=== PATIENT | female | born 1970 | race Caucasian/White ===

== ENCOUNTER 2020-02-27 07:47 | Emergency (ER) | payer OTHER ==
[~2020-02-27] VITALS: Ht 152.4 cm; Wt 51.0 kg
[~2020-02-27 07:47] MED LIST: BUPR300T49 PO
--- NOTE | 2020-02-27 08:03 | NUR ---
DIRECTOR QUALITY ASSURANCE: GEN SURG/WESTERN SURGICAL PAGED PER DR GOINS REQUEST AT THIS TIME.
[2020-02-27] MEDS ORDERED: MORPHINE SULFATE 4 MG/ML, 1ML ONE ×2 (08:11→09:13)
[2020-02-27] MEDS ORDERED: ONDANSETRON 2MG/ML, 2ML ONE (08:11)
[2020-02-27] MEDS ORDERED: ALPR0.5T PO (08:26)
[2020-02-27] MEDS ORDERED: ONDANSETRON 2MG/ML, 2ML IVPush ONE (08:30)
[2020-02-27] MEDS ORDERED: SODIUM CHLORIDE FLUSH 10ML SYR IVF ONE (08:30)
[2020-02-27 08:31] LABS: BASOPHILS # (AUTO) 0.04 x10^3/uL (0-0.1); BASOPHILS % (AUTO) 0 % (0-1); EOSINOPHILS # (AUTO) 0.02 x10^3/uL (0-0.4); EOSINOPHILS % (AUTO) 0 % (1-7); LYMPHOCYTES # (AUTO) 1.64 x10^3/uL (1-3.4); LYMPHOCYTES % (AUTO) 15 % (22-44); MD NO; MEAN CORPUSCULAR HEMOGLOBIN 31.8 pg (27.0-34.8); MEAN CORPUSCULAR HGB CONC 33.1 g/dL (32.4-35.8); MEAN CORPUSCULAR VOLUME 96.2 fL (80-100); MEAN PLATELET VOLUME 6.7 fL (7.4-10.4); MONOCYTES # (AUTO) 0.38 x10^3/uL (0.2-0.8); MONOCYTES % (AUTO) 3 % (2-9); NEUTROPHILS % (AUTO) 82 % (42-75); PLATELET COUNT 337 x10^3/uL (130-400); RED BLOOD COUNT 4.36 x10^6/uL (3.82-5.3)
[2020-02-27] MEDS: MORPHINE SULFATE 4 MG/ML, 1ML IVPush PRN ×2 (08:33→09:17)
--- NOTE | 2020-02-27 08:38 | NUR ---
Patient medicated for pain per mar with some relief. Labs sent. Awaiting ct. call light with in reach.
[2020-02-27 08:43] LABS: ALANINE AMINOTRANSFERASE 43 U/L (12-78); ANION GAP 3 mmol/L (5-15); CALCIUM 9.1 mg/dL (8.5-10.1); CHLORIDE 109 mmol/L (98-107); CREATININE 1.04 mg/dL (0.55-1.02)
[2020-02-27 08:45] LABS: ALKALINE PHOSPHATASE 51 U/L (45-117); BILIRUBIN,TOTAL 0.3 mg/dL (0.2-1.0); TOTAL PROTEIN 7.6 g/dL (6.4-8.2)
[2020-02-27] MEDS ORDERED: OMNIPAQUE 350 MG/ML, 100ML BOTTLE ONE (09:08)
--- NOTE | 2020-02-27 09:33 | NUR ---
pt re-medicated per mar for pain. iphone plugged in at front dest for pt. awaiting imaging results. call light with in reach.
--- NOTE | 2020-02-27 10:19 | NUR ---
THROUGHPUT RN: PHONE GIVEN BACK TO PT.
[2020-02-27 10:50] VITALS: BP 131/70
== END 2020-02-27 10:53 | disposition home or self-care (01) ==
LOC: ED 10:35
DX: K62.3 Rectal prolapse (principal); R19.7 Diarrhea, unspecified; R10.9 Unspecified abdominal pain
CPT/HCPCS: 36415; 74177; 80053; 83605; 85025; 96374; 96375; 96376; 99285; J2270; J2405; Q9967

== ENCOUNTER 2020-03-26 17:44 | Emergency (ER) | payer OTHER ==
[~2020-03-26] VITALS: Ht 152.4 cm; Wt 50.0 kg
[~2020-03-26 17:44] MED LIST changes: +ALPR0.5T PO
--- NOTE | 2020-03-26 18:44 | NUR ---
TO ROBERT FROM LOBBY
[2020-03-26] MEDS ORDERED: ONDANSETRON 2MG/ML, 2ML ONE (19:09)
[2020-03-26] MEDS ORDERED: MORPHINE SULFATE 4 MG/ML, 1ML ONE ×2 (19:10→21:05)
[2020-03-26] MEDS ORDERED: SODIUM CHLORIDE 0.9% 1,000 ML IV ONE (19:22)
[2020-03-26] MEDS: MORPHINE SULFATE 4 MG/ML, 1ML IVPush PRN ×2 (19:26→21:10)
[2020-03-26] MEDS ORDERED: DIAZEPAM 5 MG/ML, 2ML ONE (19:28)
[2020-03-26] MEDS ORDERED: FENTANYL PF 100 MCG/2ML IVPush ONE (19:30)
[2020-03-26] MEDS ORDERED: DIAZEPAM 5 MG/ML, 2ML IV ONE (19:30)
[2020-03-26] MEDS ORDERED: SODIUM CHLORIDE FLUSH 10ML SYR IVF ONE (19:30)
[2020-03-26] MEDS ORDERED: ONDANSETRON 2MG/ML, 2ML IVPush ONE (19:30)
[2020-03-26] MEDS ORDERED: SODIUM CHLORIDE 0.9% 1,000ML IVBOLUS ONE (19:30)
[2020-03-26 19:45] LABS: BASOPHILS # (AUTO) 0.02 x10^3/uL (0-0.1); BASOPHILS % (AUTO) 0 % (0-1); EOSINOPHILS # (AUTO) 0.06 x10^3/uL (0-0.4); EOSINOPHILS % (AUTO) 1 % (1-7); LYMPHOCYTES # (AUTO) 2.16 x10^3/uL (1-3.4); LYMPHOCYTES % (AUTO) 23 % (22-44); MD NO; MEAN CORPUSCULAR HEMOGLOBIN 31.5 pg (27.0-34.8); MEAN CORPUSCULAR HGB CONC 33.6 g/dL (32.4-35.8); MEAN PLATELET VOLUME 6.6 fL (7.4-10.4); MONOCYTES # (AUTO) 0.68 x10^3/uL (0.2-0.8); MONOCYTES % (AUTO) 7 % (2-9); NEUTROPHILS # (AUTO) 6.35 x10^3/uL (1.8-6.8); NEUTROPHILS % (AUTO) 69 % (42-75); PLATELET COUNT 345 x10^3/uL (130-400); RED BLOOD COUNT 3.83 x10^6/uL (3.82-5.3); RED CELL DISTRIBUTION WIDTH 12.9 % (9.6-15.2)
[2020-03-26 19:56] LABS: ALANINE AMINOTRANSFERASE 17 U/L (12-78); ALBUMIN 3.6 g/dL (3.4-5.0); ANION GAP 5 mmol/L (5-15); CALCIUM 8.8 mg/dL (8.5-10.1); CHLORIDE 107 mmol/L (98-107); CREATININE 1.08 mg/dL (0.55-1.02)
[2020-03-26 19:58] LABS: ALKALINE PHOSPHATASE 72 U/L (45-117); BILIRUBIN,TOTAL 0.2 mg/dL (0.2-1.0); TOTAL PROTEIN 7.6 g/dL (6.4-8.2)
[2020-03-26 20:10] VITALS: BP 98/58
[2020-03-26] MEDS ORDERED: FENTANYL PF 100 MCG/2ML ONE (21:01)
== END 2020-03-26 21:29 | disposition home or self-care (01) ==
LOC: ED 20:41
DX: K62.89 Other specified diseases of anus and rectum (principal); G89.18 Other acute postprocedural pain; K62.5 Hemorrhage of anus and rectum; R11.2 Nausea with vomiting, unspecified; R00.0 Tachycardia, unspecified
CPT/HCPCS: 36415; 80053; 85025; 96361; 96374; 96375; 96376; 99284; J2270; J2405; J3360; J7030

== ENCOUNTER 2020-03-27 01:28 | Emergency (ER) | payer OTHER ==
[~2020-03-27] VITALS: Ht 152.4 cm; Wt 50.0 kg
[2020-03-27 01:31] VITALS: BP 154/71
[2020-03-27] MEDS ORDERED: ONDANSETRON ODT 4 MG ONE ×2 (01:34→02:29)
--- NOTE | 2020-03-27 01:37 | NUR ---
ODT ZOFRAN GIVEN IN TRIAGE
--- NOTE | 2020-03-27 01:50 | NUR ---
THIS IS A 49Y F THAT COMES INTO THE ER, PT WAS SEEN EARLIER FOR PAIN POST OP. PT RETURNS FOR WORSENING PAIN/ N/V. PT STS SHE WAS UNABLE TO FILL MEDICATION AFTER LEAVING. PT IS WRITHING ON GURNEY CRYING STS "I JUST NEED SOMEONE TO CARE FOR ME THIS IS BARBARIC." PT REPORTS BEING UNABLE TO TAKE TYLENOL 3 AT HOME DUE TO NAUSEA AND NOT BEING ABLE TO KEEP FOOD DOWN. PT ABLE TO SPEAK IN FULL SENTENCES AND FOLLOW COMMANDS. AWAITING FURTHER ORDERS AT THIS TIME
[2020-03-27] MEDS ORDERED: ONDANSETRON ODT 4 MG PO ONE (02:00)
[2020-03-27] MEDS ORDERED: ONDANSETRON 4 MG TABLET PO ONE (02:00)
[2020-03-27] MEDS ORDERED: DIAZEPAM 5 MG TABLET ONE (02:25)
[2020-03-27] MEDS ORDERED: DIAZEPAM 5 MG TABLET PO ONE (02:30)
--- NOTE | 2020-03-27 02:37 | NUR ---
MD AT BEDSIDE TO ASSESS PT
--- NOTE | 2020-03-27 03:09 | NUR ---
PT FRIEND NOW AT BEDSIDE
[2020-03-27] MEDS ORDERED: SODIUM CHLORIDE FLUSH 10ML SYR IVF ONE (04:00)
[2020-03-27] MEDS ORDERED: SODIUM CHLORIDE 0.9% 1,000ML IVBOLUS ONE (04:00)
--- NOTE | 2020-03-27 04:12 | NUR ---
PIV INSERTED, FLUIDS INFUSING W/O DIFFICULTY. FRIEND SHIRA MOJICA/ PA D/T QUESTIONS
[2020-03-27] MEDS ORDERED: KETOROLAC 30 MG/1 ML ONE (04:47)
--- NOTE | 2020-03-27 04:50 | NUR ---
PT MEDICATED PER MAR FOR PAIN. PT SHOUTING AT RN, PT STS SHE HAS NOT EATEN IN TWO DAYS. PT EDUCATED THAT SHE HAS GOTTEN ZOFRAN FOR NAUSEA AND TO LET RN KNOW IF SHE FEELS READY TO TRY TO EAT.
--- NOTE | 2020-03-27 04:52 | NUR ---
PT TO CT AT THIS TIME
[2020-03-27] MEDS ORDERED: KETOROLAC 30 MG/1 ML IVPush ONE (05:00)
--- NOTE | 2020-03-27 05:06 | NUR ---
PT BACK FROM CT
[2020-03-27] MEDS ORDERED: OMNIPAQUE 350 MG/ML, 100ML BOTTLE ONE (05:07)
--- NOTE | 2020-03-27 05:40 | NUR ---
AQUINO INSERTED USING STERILE TECHNIQUE SHAUNA RN AT BEDSIDE FOR ASSIST
--- NOTE | 2020-03-27 05:50 | NUR ---
PT STS SHE FEELS BETTER AFTER AQUINO HAS BEEN IN PLACE
[2020-03-27 06:08] LABS: MICROSCOPIC NOT IND
[2020-03-27 06:21] LABS: AMPHETAMINE SCREEN, URINE Negative (Negative); BARBITURATE SCREEN, URINE Negative (Negative); BENZODIAZEPINE SCREEN, URINE Positive (Negative); CANNABINOID SCREEN, URINE Positive (Negative); COCAINE SCREEN, URINE Negative (Negative); METHADONE SCREEN, URINE Negative (Negative); OPIATE SCREEN, URINE Positive (Negative)
--- NOTE | 2020-03-27 07:02 | NUR ---
DISTILLER IN AT THIS TIME, PER REPORT PT NOT SURE IF SHE LIKE TO DC WITH AQUINO IN PLACE OR WOULD LIKE IT REMOVED. SECURITY OUTSIDE OF ON STANDBY.
--- NOTE | 2020-03-27 07:09 | NUR ---
JACKHAMMER OPERATOR: SPOKE WITH PATIENT REGARDING DISCHARGE AND AQUINO. PT SPEAKING WITH HER DAD ON THE PHONE ALSO, HE IS STATING "I'VE BEEN HOME WITH A AQUINO. YOU CAN DO IT AND WILL BE FINE." PT EDUCATED REGARDING AQUNIO CARE. PT ALSO EDUCATED REGARDING THE RISKS OF REMOVING THE AQUINO AND POSSIBLITIES OF RETURNING TO ED FOR THE SAME ISSUES. PT STATES SHE HAS A DR. HYATT SUNDAY. PT HAS FRIEND BEDSIDE. ALL QUESTIONS HAVE BEEN ANSWERED. PT IS IN AGREEANCE TO DISCHARGE. PT STATES "THANK YOU FOR EXPLAINING IT. I'M JUST TIRED. I HAD SURGERY LAST WEEK AND I'M TIRED." PT VERBALIZED UNDERSTANDING TO ALL INSTRUCTION.
--- NOTE | 2020-03-27 07:17 | NUR ---
BACK TENDER CLOTH PRINTING: PT LEFT WITH ALL PERSONAL BELONGINGS. PT AMBULATORY WITH STEADY GAIT. PT ABLE TO GET DRESSED WITH AQUINO WITH NO COMPLICATIONS. PT LEFT WITH ALL D/C PAPERWORK AND STATED "I DON'T HAVE ANYMORE QUESTIONS."
--- NOTE | 2020-03-27 07:18 | NUR ---
PIV D/C WITH TIP INTACT. PRESSURE DRESSING APPLIED.
== END 2020-03-27 07:19 | disposition home or self-care (01) ==
LOC: ED 04:00
DX: R33.8 Other retention of urine (principal); G89.18 Other acute postprocedural pain; K62.89 Other specified diseases of anus and rectum; R11.2 Nausea with vomiting, unspecified; Z87.19 Personal history of other diseases of the digestive system
CPT/HCPCS: 72193; 80307; 81003; 96361; 96374; 99285; J1885; J7030; Q0162; Q9967